=== PATIENT | male | born 1965 | race Caucasian/White ===

== ENCOUNTER 2017-09-11 12:47 | Emergency (ER) | payer OTHER ==
[2017-09-11 12:48] VITALS: BP 126/71; PULSE 62; RESP 18; TEMP 98.2; O2SAT 100
[2017-09-11 13:36] LABS: AUTOMATED NEUTROPHIL # 5.1 TH/MM3 (1.8-7.7); BASOPHIL # 0.1 TH/MM3 (0-0.2); BASOPHIL % 0.9 % (0.0-2.0); EOSINOPHIL # 0.2 TH/MM3 (0-0.4); EOSINOPHIL % 2.3 % (0.0-4.0); HEMATOCRIT 42.6 % (39.0-51.0); HEMOGLOBIN 14.8 GM/DL (13.0-17.0); LYMPHOCYTE # 1.7 TH/MM3 (1.0-4.8); MEAN CELL VOLUME 89.3 FL (80.0-100.0); MEAN CORPUSCULAR HGB CONC 34.7 % (32.0-36.0); MEAN PLATELET VOLUME 7.3 FL (7.0-11.0); MONO % 9.9 % (0.0-8.0); MONOCYTE # 0.8 TH/MM3 (0-0.9); NEUT % 64.9 % (16.0-70.0); PLATELET COUNT 350 TH/MM3 (150-450); RED BLOOD COUNT 4.76 MIL/MM3 (4.50-5.90); RED CELL DISTRIBUTION WIDTH 15.4 % (11.6-17.2); WHITE BLOOD COUNT 7.9 TH/MM3 (4.0-11.0)
[2017-09-11 13:52] LABS: BICARBONATE 28.1 MEQ/L (21.0-32.0); BLOOD UREA NITROGEN 26 MG/DL (7-18); CALCIUM 8.6 MG/DL (8.5-10.1); CHLORIDE 103 MEQ/L (98-107); GLOMERULAR FILTRATION RATE 90 ML/MIN (>89); GLUCOSE,RANDOM 84 MG/DL (74-106); SODIUM (NA) 136 MEQ/L (136-145)
[2017-09-11] MEDS ORDERED: LORazepam 2 MG/ML VIAL IV PUSH ONE (14:15)
[2017-09-11] MEDS ORDERED: HALOPERIDOL LACTATE 5 MG/ML AMP IM ONE (14:15)
[2017-09-11] MEDS ORDERED: diphenhydrAMINE HCL 50 MG/ML VIAL IM ONE (14:15)
[2017-09-11] MEDS ORDERED: LORazepam 2 MG/ML VIAL IM ONE (14:45)
--- NOTE | 2017-09-11 15:04 | PD ---
HPI Chief Complaint: Psychiatric Symptoms Time Seen by Provider: 14:58 Travel History International Travel<30 days: No Contact w/Intl Traveler<30days: No Traveled to known affect area: No History of Present Illness HPI 51-year-old patient presents to the emergency department voluntarily with admission of being addicted to crack cocaine and feeling that he is to different people and going out of his mind. He feels like he wants to hurt the people around him and he came here to become safe. He denies suicidal ideation. Psychiatric labs were ordered in triage. The patient denies any other medical issues. Patient has no known drug allergies. [facility] Social History Alcohol Use: Yes Tobacco Use: Yes Substance Use: Yes Allergies-Medications (Allergen,Severity, Reaction): Coded Allergies: No Known Allergies (Unverified , 09/11/17) Review of Systems ROS Limitations: Clinical Condition Except as stated in HPI: all other systems reviewed are Neg General / Constitutional: No: Fever Eyes: No: Visual changes HENT: No: Headaches Cardiovascular: No: Chest Pain or Discomfort Respiratory: No: Shortness of Breath Gastrointestinal: No: Abdominal Pain Genitourinary: No: Dysuria Musculoskeletal: No: Pain Skin: No Rash Neurologic: No: Weakness Psychiatric: No: Depression Endocrine: No: Polydipsia Hematologic/Lymphatic: No: Easy Bruising Physical Exam Exam Limitations: Clinical Condition Narrative GENERAL: Patient appears in no acute distress. SKIN: Warm and dry. Normal color. Normal turgor. No signs of trauma HEAD: Atraumatic. Normocephalic. EYES: Pupils equal and round. No scleral icterus. No injection or drainage. ENT: No nasal bleeding or discharge. Mucous membranes pink and moist. NECK: Trachea midline. Supple and nontender. CARDIOVASCULAR: Regular rate and rhythm. RESPIRATORY: No accessory muscle use. Clear to auscultation. Breath sounds equal bilaterally. GASTROINTESTINAL: Abdomen soft, non-tender, nondistended. Hepatic and splenic margins not palpable. MUSCULOSKELETAL: Extremities without clubbing, cyanosis, or edema. No obvious deformities. NEUROLOGICAL: Awake and alert. No obvious cranial nerve deficits. Motor grossly within normal limits. Five out of 5 muscle strength in the arms and legs. Normal speech. PSYCHIATRIC: Appropriate mood and affect; insight and judgment normal. Data Data Last Documented VS Vital Signs Date Time Temp Pulse Resp B/P (MAP) Pulse Ox O2 Delivery O2 Flow Rate FiO2 2/5/18 12:48 98.2 62 18 126/71 (89) 100 Orders Orders Complete Blood Count With Diff (09/11/17 13:08) Thyroid Stimulating Hormone (09/11/17 13:08) Basic Metabolic Panel (Bmp) (09/11/17 13:08) Psych Screen (09/11/17 13:08) Drug Screen, Random Urine (09/11/17 13:08) Alcohol (Ethanol) (09/11/17 13:08) Lorazepam Inj (Ativan Inj) (09/11/17 14:15) Haloperidol Inj (Haldol Inj) (09/11/17 14:15) Diphenhydramine Inj (Benadryl Inj) (09/11/17 14:15) Lorazepam Inj (Ativan Inj) (09/11/17 14:45) Labs Laboratory Tests Test 09/11/17 13:20 09/11/17 13:25 White Blood Count 7.9 TH/MM3 Red Blood Count 4.76 MIL/MM3 Hemoglobin 14.8 GM/DL Hematocrit 42.6 % Mean Corpuscular Volume 89.3 FL Mean Corpuscular Hemoglobin 31.0 PG Mean Corpuscular Hemoglobin Concent 34.7 % Red Cell Distribution Width 15.4 % Platelet Count 350 TH/MM3 Mean Platelet Volume 7.3 FL Neutrophils (%) (Auto) 64.9 % Lymphocytes (%) (Auto) 22.0 % Monocytes (%) (Auto) 9.9 % Eosinophils (%) (Auto) 2.3 % Basophils (%) (Auto) 0.9 % Neutrophils # (Auto) 5.1 TH/MM3 Lymphocytes # (Auto) 1.7 TH/MM3 Monocytes # (Auto) 0.8 TH/MM3 Eosinophils # (Auto) 0.2 TH/MM3 Basophils # (Auto) 0.1 TH/MM3 CBC Comment DIFF FINAL Differential Comment Blood Urea Nitrogen 26 MG/DL Creatinine 0.90 MG/DL Random Glucose 84 MG/DL Calcium Level 8.6 MG/DL Sodium Level 136 MEQ/L Potassium Level 4.4 MEQ/L Chloride Level 103 MEQ/L Carbon Dioxide Level 28.1 MEQ/L Anion Gap 5 MEQ/L Estimat Glomerular Filtration Rate 90 ML/MIN Thyroid Stimulating Hormone 3rd Gen 1.220 uIU/ML Ethyl Alcohol Level LESS THAN 3 MG/DL Urine Opiates Screen NEG Urine Barbiturates Screen NEG Urine Amphetamines Screen NEG Urine Benzodiazepines Screen NEG Urine Cocaine Screen POS Urine Cannabinoids Screen POS MDM Medical Decision Making Medical Screen Exam Complete: Yes Emergency Medical Condition: Yes Differential Diagnosis Polysubstance abuse. Psychosis. Medical clearance for psychiatric evaluation. Narrative Course Patient appears medically stable at time of exam. Psychiatric labs ordered as per protocol. CBC is unremarkable. Chemistries are unremarkable. Toxicology positive for cocaine and marijuana. Alcohol is less than 3. Patient is medically cleared for psychiatric evaluation. Condition: Stable [facility] Lane Sep 11, 2017 15:04
[2017-09-11 15:07] VITALS: BP 122/59; PULSE 74; RESP 16; O2SAT 97
[2017-09-11 18:37] VITALS: BP 106/60; PULSE 55; RESP 18; O2SAT 97
[2017-09-11 22:03] VITALS: BP 122/58; PULSE 51; RESP 19; TEMP 98.6; O2SAT 97
[2017-09-12 07:36] VITALS: BP 125/60; PULSE 65; RESP 19; TEMP 98.2; O2SAT 97
--- NOTE | 2017-09-12 11:00 | PD ---
Physical Exam Time Seen by Provider: 10:55 Jennifer Vegas has evaluated the patient and cleared the patient for discharge. Patient has been provided information to [facility] for detox. Data Data Last Documented VS Vital Signs Date Time Temp Pulse Resp B/P (MAP) Pulse Ox O2 Delivery O2 Flow Rate FiO2 09/12/17 07:36 98.2 65 19 125/60 (81) 97 Room Air Orders Orders Complete Blood Count With Diff (09/11/17 13:08) Thyroid Stimulating Hormone (09/11/17 13:08) Basic Metabolic Panel (Bmp) (09/11/17 13:08) Psych Screen (09/11/17 13:08) Drug Screen, Random Urine (09/11/17 13:08) Alcohol (Ethanol) (09/11/17 13:08) Lorazepam Inj (Ativan Inj) (09/11/17 14:15) Haloperidol Inj (Haldol Inj) (09/11/17 14:15) Diphenhydramine Inj (Benadryl Inj) (09/11/17 14:15) Lorazepam Inj (Ativan Inj) (09/11/17 14:45) Diet Regular Basic (09/11/17 Dinner) Diet Regular Basic (09/12/17 Breakfast) Labs Laboratory Tests Test 09/11/17 13:20 09/11/17 13:25 White Blood Count 7.9 TH/MM3 Red Blood Count 4.76 MIL/MM3 Hemoglobin 14.8 GM/DL Hematocrit 42.6 % Mean Corpuscular Volume 89.3 FL Mean Corpuscular Hemoglobin 31.0 PG Mean Corpuscular Hemoglobin Concent 34.7 % Red Cell Distribution Width 15.4 % Platelet Count 350 TH/MM3 Mean Platelet Volume 7.3 FL Neutrophils (%) (Auto) 64.9 % Lymphocytes (%) (Auto) 22.0 % Monocytes (%) (Auto) 9.9 % Eosinophils (%) (Auto) 2.3 % Basophils (%) (Auto) 0.9 % Neutrophils # (Auto) 5.1 TH/MM3 Lymphocytes # (Auto) 1.7 TH/MM3 Monocytes # (Auto) 0.8 TH/MM3 Eosinophils # (Auto) 0.2 TH/MM3 Basophils # (Auto) 0.1 TH/MM3 CBC Comment DIFF FINAL Differential Comment Blood Urea Nitrogen 26 MG/DL Creatinine 0.90 MG/DL Random Glucose 84 MG/DL Calcium Level 8.6 MG/DL Sodium Level 136 MEQ/L Potassium Level 4.4 MEQ/L Chloride Level 103 MEQ/L Carbon Dioxide Level 28.1 MEQ/L Anion Gap 5 MEQ/L Estimat Glomerular Filtration Rate 90 ML/MIN Thyroid Stimulating Hormone 3rd Gen 1.220 uIU/ML Ethyl Alcohol Level LESS THAN 3 MG/DL Urine Opiates Screen NEG Urine Barbiturates Screen NEG Urine Amphetamines Screen NEG Urine Benzodiazepines Screen NEG Urine Cocaine Screen POS Urine Cannabinoids Screen POS MDM Supervised Visit with JASON: No Narrative Course [facility] has evaluated the patient and cleared the patient for discharge. Patient has been provided information to [facility] for detox. Patient contracts safety. Denies suicidal or homicidal ideations. Patient will be provided community resource packet to [facility] for follow-up. Has friends and family for support. Patient was medically cleared by alternate provider prior to psych screening. Patient has been evaluated by psychiatry and and is now cleared for discharge. Diagnosis Primary Impression: Substance induced mood disorder Referrals: [facility] (Out patient) [facility] Primary Care Physician Psychiatrist [facility] Patient Instructions: General Instructions, Mood Disorders (ED), Polysubstance Abuse (ED) Additional Instruction: Contract safety to your self and others Stop using drugs Follow-up with psychiatry Follow-up with primary care provider Follow-up with Frank Quiñonez Return to the emergency department immediately with worsening of symptoms Med/Other Pt SpecificInfo: No Change to Meds, No Meds Exist/No RX given Disposition: 01 DISCHARGE HOME Condition: Stable Nya Anderson Sep 12, 2017 11:00
== END 2017-09-12 11:10 | disposition home or self-care (01) ==
LOC: NEPJ 12:47 → NEPD 09-12 11:10
DX: F14.24 Cocaine dependence with cocaine-induced mood disorder (principal); F12.90 Cannabis use, unspecified, uncomplicated; Z72.0 Tobacco use
CPT/HCPCS: 80048; 80307; 84443; 85025; 96372; 99283; J1200; J1630; J2060